=== PATIENT | male | born 2005 | race Two or more races ===

== ENCOUNTER 2024-01-10 16:02 | Outpatient (CLI) | payer OTHER ==
[2024-01-10 21:47] LABS: CHLAMYDIA TRACHOMATIS DNA NEGATIVE (NEGATIVE); NEISSERIA GONORRHOEAE DNA NEGATIVE (NEGATIVE); TRICHOMONAS VAGINALIS DNA NEGATIVE (NEGATIVE)
[2024-01-12 08:10] LABS: HIV SCREEN 4TH GENERATION Non Reactive (Non Reactive)
[2024-01-12 15:08] LABS: HSV 1 IGG TYPE SPEC <0.91 index (0.00-0.90); HSV 2 IGG TYPE SPEC <0.91 index (0.00-0.90)
[2024-01-13 00:08] LABS: HCV AB Non Reactive (Non Reactive)
== END 2024-01-10 16:03 | disposition home or self-care (01) ==
LOC: LAB 16:02
PROVIDERS: ATTEND Family Medicine
DX: Z11.3 Encounter for screening for infections with a predominantly sexual mode of transmission (principal)
CPT/HCPCS: 36415; 86592; 86695; 86696; 86803; 87389; 87491; 87591; 87661